=== PATIENT | female | born 1940 | race Caucasian/White ===

== ENCOUNTER → 2017-01-16 | Outpatient (CLI) | payer MEDICARE, MEDICAID ==
[~2017-01-16] MED LIST: ASPIRIN PO; DIABETES MED PO; HTN MED PO; MOTRIN PO; [UNRECOGNIZED DRUG - REMARK] PO
--- NOTE | 2017-01-16 15:18 | RADRPT ---
PROCEDURE: XR Left Foot. CLINICAL INDICATION: Left foot pain. TECHNIQUE: Three views. Frontal, lateral, and oblique. COMPARISON: None. FINDINGS: There is no fracture or dislocation. The soft tissues are normal. There are degenerative changes of the first metatarsal phalangeal joint with joint space narrowing a nd osteophytes. There is no lytic or blastic lesion. There is no radiopaque foreign body. IMPRESSION: 1. 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 2. Otherwise unremarkable images of the left foot. RPTAT: QQ .Don Vance MD, Date Time Electronically viewed and signed by .Don Vance MD, on 01/16/2017 15:18 .R/
== END | disposition home or self-care (01) ==
LOC: RAD 12:15
PROVIDERS: ATTEND Podiatrist
DX: M79.672 Pain in left foot (principal)